=== PATIENT | female | born 1970 | race Caucasian/White ===

== ENCOUNTER → 2016-12-09 | Outpatient (CLI) | payer BC ==
--- NOTE | 2016-12-09 16:07 | P.HPBAR ---
Bariatric H&P - History & Physicial H&P Date: 12/09/16 History & Physicial: Visit/CC: Patient initial contact: Initial weight: Initial weight in pounds: Height: Initial BMI: Last weight: Current weight: 273 pounds Current weight in pounds: Current BMI: [place] body weight (based on NIH guidelines): Excess body weight loss: The patient is a 46 year-old F who presents for Bariatric Assessment. Patient presents today for lab band follow up. She's not been seen in several years. She states her weight has slightly increased. She has not had an adjustment or fill of her LAP-BAND for several years. She's had problems with chronic dysphagia. Patient was recently diagnosed with cholelithiasis. Surgical - Exam - General well developed, no distress - Eyes PERRL - ENT normal pinna - Neck no masses - Respiratory normal expansion - Cardiovascular Rhythm: regular - Abdomen Abdomen: soft, non tender Bariatric Assessment & Plan Plan: The patient was scheduled for an esophagram. She is unsure if she wishes to remove her band at this time. I did discuss her the possibility of conversion sleeve gastrectomy. Patient will follow-up in one month. Bariatric Checklist Checklist: Plan: Checklist: EGD: 1. Hiatal hernia: 2. H. Pylori: HgbA1c: Vitamin D: Smoking: Primary care physician referral: Psychiatry clearance: Cardiology clearance: Sleep study: Diet journal: VTE risk score: VTE risk level: Rehab needs at discharge:
[2016-12-09 16:09] VITALS: BP 158/74; PULSE 79; RESP 16; TEMP 99.2; BMI 41.5
== END | disposition home or self-care (01) ==
LOC: BARWHC3 14:44
PROVIDERS: ATTEND Surgery
DX: Z48.815 Encounter for surgical aftercare following surgery on the digestive system (principal); Z98.84 Bariatric surgery status
CPT/HCPCS: 99201

== ENCOUNTER → 2016-12-11 | Outpatient (CLI) | payer BC ==
--- NOTE | 2016-12-11 08:54 | FL ---
EXAMINATION TYPE: FL barium swallow DATE OF EXAM: 12/11/2016 LAP BANDING LIMITED ESOPHAGRAM: CLINICAL HISTORY: R13.10 dysphagia, K21.9 GERD TECHNIQUE: Limited esophagram is performed utilizing 2-3 oz of barium. 6 images obtained. COMPARISON: None. 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 The patient then drank oral contrast. There is good flow of c ontrast along the course of the esophagus. There is good flow of contrast along the course of the la p band, there is no evidence of contrast extravasation to suggest leak. There is no significant lillian leticia prolapse appreciated. IMPRESSION: No evidence of prolapse or significant obstruction.
== END | disposition home or self-care (01) ==
LOC: RADFLMAIN 08:02
PROVIDERS: ATTEND Surgery
DX: R13.10 Dysphagia, unspecified (principal)
CPT/HCPCS: 74220

== ENCOUNTER → 2019-11-22 | Outpatient (CLI) | payer OTHER ==
[2019-11-22 13:29] VITALS: BP 169/68; PULSE 76; TEMP 98; BMI 41.0
--- NOTE | 2019-11-22 14:36 | P.HPBAR ---
Bariatric H&P - History & Physicial H&P Date: 11/22/19 History & Physicial: Visit/CC: lap band follow up Patient initial contact: Initial weight: 158.757 kg Initial weight in pounds: 350.00 Height: 5 ft 8 in Initial BMI: 53.1 Last weight: Current weight: 122.47 kg Current weight in pounds: 270.00 Current BMI: 41.0 [place] body weight (based on NIH guidelines): 63.503 kg Excess body weight loss: 38.0% The patient is a 49 year-old F who presents for Bariatric Assessment. Patient presents today for lab band follow. She's had complaints of epigastric and some mild chest pain. She's had multiple workups name jonathan. Apparent she has a MRI which shows gallstones. The patient also request have her band removed. Past Medical History History of Any Multi-Drug Resistant Organisms: None Reported Smoking Status: Never smoker Surgical - Exam Vital Signs Temp Pulse BP 98 F 76 169/68 11/22/19 13:24 11/22/19 13:24 11/22/19 13:24 - General well developed, well nourished, no distress - Eyes PERRL - ENT normal pinna - Neck no masses - Respiratory normal expansion - Cardiovascular Rhythm: regular - Abdomen Abdomen: soft, non tender Bariatric Assessment & Plan Plan: Epigastric abdominal pain most likely due to gallstones. Patient will be scheduled for ultrasound of her gallbladder. I did discuss removal LAP-BAND with patient. She has had dysphagia symptoms and in the past. We will attempt to authorize her ultrasound for her gallbladder today. Bariatric Checklist Checklist: Plan: Checklist: EGD: 1. Hiatal hernia: 2. H. Pylori: HgbA1c: Vitamin D: Smoking: Unknown if ever smoked Primary care physician referral: Psychiatry clearance: Cardiology clearance: Sleep study: Diet journal: VTE risk score: VTE risk level: Rehab needs at discharge:
== END | disposition home or self-care (01) ==
LOC: BARWHC3 12:59
PROVIDERS: ATTEND Surgery
DX: Z46.51 Encounter for fitting and adjustment of gastric lap band (principal); R10.13 Epigastric pain; R07.9 Chest pain, unspecified
CPT/HCPCS: 99211

== ENCOUNTER → 2019-11-26 | Outpatient (CLI) | payer OTHER ==
--- NOTE | 2019-11-26 07:28 | US ---
EXAMINATION TYPE: US gallbladder DATE OF EXAM: 11/26/2019 COMPARISON: NONE CLINICAL HISTORY: K80.20 Hx of cholylisthesis. EXAM MEASUREMENTS: Liver Length: 16.4 cm Gallbladder Wall: 0.2 cm CBD: 0.5 cm Right Kidney: 10.3 x 4.7 x 5.5 cm Patient of large body habitus Pancreas: Obscured by bowel gas Liver: Increased attenuation Gallbladder: ALFREDO sign, cholelithiasis, wall wnl Evidence for sonographic Rosenbaum's sign: No CBD: wnl Right Kidney: wnl IMPRESSION: 1. Cholelithiasis. 2. Fatty liver.
== END | disposition home or self-care (01) ==
LOC: RADUSWWP 06:52
PROVIDERS: ATTEND Surgery
DX: K76.0 Fatty (change of) liver, not elsewhere classified (principal); K80.20 Calculus of gallbladder without cholecystitis without obstruction
CPT/HCPCS: 76705

== ENCOUNTER → 2019-11-26 | Outpatient (CLI) | payer OTHER ==
[2019-11-26 08:46] LABS: Basophils # (A) 0.1 k/uL (0-0.2); Basophils % (A) 1 %; Eosinophils # (A) 0.1 k/uL (0-0.7); Eosinophils % (A) 1 %; HGB 12.9 gm/dL (11.4-16.0); Lymphocytes # (A) 2.2 k/uL (1.0-4.8); Lymphocytes % (A) 30 %; MCH 27.6 pg (25.0-35.0); MCHC 34.1 g/dL (31.0-37.0); MCV 80.9 fL (80.0-100.0); Mean Platelet Volume 6.4; Monocytes # (A) 0.4 k/uL (0-1.0); Monocytes % (A) 5 %; Neutrophils # (A) 4.6 k/uL (1.3-7.7); Neutrophils % (A) 62 %; Platelet Count 227 k/uL (150-450); RDW 13.8 % (11.5-15.5); WBC 7.4 k/uL (3.8-10.6)
[2019-11-26 08:54] LABS: Albumin 4.2 g/dL (3.5-5.0); Calcium 8.8 mg/dL (8.4-10.2); Total Bilirubin 0.4 mg/dL (0.2-1.3); Total Protein 7.2 g/dL (6.3-8.2)
== END | disposition home or self-care (01) ==
LOC: LABPAT 07:29
PROVIDERS: ATTEND Surgery
DX: Z01.818 Encounter for other preprocedural examination (principal)
CPT/HCPCS: 36415; 80053; 85025; 93005

== ENCOUNTER 2019-12-14 07:22 | Day surgery (SDC) | payer OTHER ==
[2019-12-09 15:25] VITALS: BMI 39.5
[~2019-12-14 07:22] MED LIST: ACETAMINOPHEN TAB 500 MG TAB PO ONE; DEXAMETHASONE SOD PHOSPHATE 10 MG/ML 1 ML VIAL IV ONE; HEPARIN SODIUM,PORCINE 5,000 UNIT/ML 1 ML VIAL SQ ONE; LACTATED RINGERS 1,000 ML IV SCH; MIDAZOLAM 2 MG/2 ML VIAL IV PRN; ONDANSETRON 4 MG/2 ML VIAL IVP ONE; SCOPOLAMINE 1.5MG/72HR PATCH TRANSDERM ONE
[2019-12-14] MEDS ORDERED: LIDOCAINE 1% (10MG/ML) FOR IV START INTRADERMA ONE (08:00)
--- NOTE | 2019-12-14 08:40 | P.GSHP ---
History of Present Illness H&P Date: 12/14/19 Chief Complaint: Dysphagia, right upper quadrant pain. This 40 female history of LAP-BAND surgery. Patient safe removal of LAP-BAND dysphagia. She is also has evidence of cholecystitis and cholelithiasis. Patient will undergo laparoscopic cholecystectomy concurrently with removal of LAP-BAND. Past Medical History Past Medical History: Asthma, Chest Pain / Angina, GERD/Reflux, Hypertension, Thyroid Disorder Additional Past Medical History / Comment(s): environmental allergies, buldging disc., gall bladder pain. History of Any Multi-Drug Resistant Organisms: None Reported Past Surgical History: Bariatric Surgery, Tonsillectomy Additional Past Surgical History / Comment(s): ovarian cyst, lap band (2002- Dr. Hill) Past Anesthesia/Blood Transfusion Reactions: Motion Sickness, Postoperative Nausea & Vomiting (PONV) Past Psychological History: No Psychological Hx Reported Smoking Status: Never smoker Past Alcohol Use History: Occasional Past Drug Use History: None Reported - Past Family History Mother Family Medical History: No Reported History Medications and Allergies Home Medications Medication Instructions Recorded Confirmed Type Fluticasone/Salmeterol [Advair 1 puff INHALATION DAILY 11/23/19 12/09/19 History 250-50 Diskus] Losartan [Cozaar] 25 mg PO DAILY 11/23/19 12/09/19 History Montelukast [Singulair] 10 mg PO DAILY 11/23/19 12/09/19 History Omeprazole 20 mg PO DAILY 11/23/19 12/09/19 History Thyroid,Pork [[place] Thyroid] 90 mg PO MOWEFR 11/23/19 12/09/19 History Thyroid,Pork [[place] Thyroid] 120 mg PO SUTUTHSA 11/23/19 12/09/19 History amLODIPine [Norvasc] 5 mg PO DAILY 11/23/19 12/09/19 History Acetaminophen Tab [Tylenol] 650 mg PO DIRECTED PRN 12/09/19 12/09/19 History Biotin 10,000 mcg PO DAILY 12/09/19 12/09/19 History Cholecalciferol [Vitamin D3 (25 2,000 unit PO DAILY 12/09/19 12/09/19 History Mcg = 1000 Iu)] Allergies Allergy/AdvReac Type Severity Reaction Status Date / Time surgical glue Allergy Unknown red and Uncoded 12/14/19 07:46 itching Surgical - Exam Vital Signs Temp Pulse Resp BP Pulse Ox 97.1 F L 81 16 160/77 96 12/14/19 08:07 12/14/19 08:07 12/14/19 08:07 12/14/19 08:07 12/14/19 08:07 - General well developed, well nourished, no distress - Eyes PERRL - ENT normal pinna - Neck no masses - Respiratory normal expansion - Cardiovascular Rhythm: regular - Abdomen Abdomen: soft, non tender Assessment and Plan Assessment: Chronic dysphagia. We'll form of LAP-BAND. Cholelithiasis. We'll perform laparoscopic cholecystectomy
[2019-12-14] MEDS ORDERED: MIDAZOLAM 2 MG/2 ML VIAL ONE (09:05)
[2019-12-14] MEDS ORDERED: fentaNYL (PF) 50 MCG/ML 2 ML AMP ONE (09:05)
[2019-12-14] MEDS ORDERED: GLYCOPYRROLATE 0.2 MG/ML 2 ML VIAL ONE (09:05)
[2019-12-14] MEDS ORDERED: PROPOFOL 10 MG/ML 20 ML VIAL IV ONE (09:05)
[2019-12-14] MEDS ORDERED: SUCCINYLCHOLINE CHLORIDE 100 MG/5 ML SYR IV ONE (09:05)
[2019-12-14] MEDS ORDERED: KETOROLAC 15 MG/ML 1 ML VIAL ONE (09:05)
[2019-12-14] MEDS ORDERED: ROCURONIUM BROMIDE 10 MG/ML 5 ML VIAL IV ONE (09:05)
[2019-12-14] MEDS ORDERED: NEOSTIGMINE 1 MG/ML 10 ML VIAL ONE (09:05)
[2019-12-14] MEDS ORDERED: BUPIVACAINE (PF) 0.5% 30 ML VIAL SQ ONE (09:37)
[2019-12-14] MEDS ORDERED: LACTATED RINGERS 1,000 ML IV ONE (10:02)
--- NOTE | 2019-12-14 10:23 | P.OP ---
Date of Procedure: 12/14/19 Preoperative Diagnosis: Dysphagia Cholelithiasis Postoperative Diagnosis: Dysphagia Cholelithiasis Procedure(s) Performed: Laparoscopic repair of LAP-BAND system Laparoscopic cholecystectomy Anesthesia: KAY Surgeon: Jose Hill Estimated Blood Loss (ml): 20 Pathology: other (Gallbladder) Condition: stable Disposition: PACU Description of Procedure: The patient's placed the operative table in the supine position. She received general anesthesia. She was then placed in dorsal lithotomy position. Her abdomen was prepped and draped usual sterile fashion. The skin was incised at the LAP-BAND port then using blunt and sharp dissection with cautery the LAP- BAND port was dissected free. Next using a 5 ohmmeter operative trocar the. Cavity was entered at the LAP-BAND port site. The abdomen was insufflated. Next a 15 mm trochars placed in the left epigastric area and then a fibrillar trocar is placed in the suprapubic umbilical position and the left lateral position. The LAP-BAND device was seen after liver was retracted and then the LAP-BAND device was dissected free by dividing adhesions Mily device. LAP- BAND was then cut next the buckle Mily device withdrawn from around stomach. The LAP-BAND device was withdrawn through the 15 mm trocar site. Next a fibrillar trocar is placed in the right lateral position and the right subcostal position. The gallbladder was then grasped the fundus and infundibulum. Lateral and cephalad traction was applied to the gallbladder. The cystic duct was dissected. A 6 medical view of safety was achieved. And then the cystic duct was then ligated with the 2-0 Ethibond suture in the timeout device. The cystic duct was then divided using the Harmonic scissors. The gallbladder was then removed from the liver bed using the Harmonic scissors the cystic artery was divided using Harmonic scissors. The gallbladder was extracted through the 15 Simon trocar site. The gallbladder is packed. Large gallstones. The liver bed was irrigated there is no bleeding seen. The trochars withdrawn. The skin was closed interrupted 3-0 Monocryl suture. Dermabond was applied. Patient top she will was sent to recovery room in stable condition.
[2019-12-14] MEDS: HYDROmorphone 0.5 MG/0.5 ML SYRINGE IVP PRN ×4 (10:32→11:24)
[2019-12-14 10:43] VITALS: TEMP 97.8
[2019-12-14 13:33] VITALS: BP 141/85; PULSE 71; RESP 18
== END 2019-12-14 13:21 | disposition home or self-care (01) ==
LOC: OR 07:22
PROVIDERS: ATTEND Surgery
DX: K80.10 Calculus of gallbladder with chronic cholecystitis without obstruction (principal); Z45.89 Encounter for adjustment and management of other implanted devices; R13.10 Dysphagia, unspecified; I10 Essential (primary) hypertension; J45.909 Unspecified asthma, uncomplicated; K21.9 Gastro-esophageal reflux disease without esophagitis; E07.9 Disorder of thyroid, unspecified; Z98.890 Other specified postprocedural states; Z79.890 Hormone replacement therapy; Z79.51 Long term (current) use of inhaled steroids; Z79.899 Other long term (current) drug therapy; Z91.048 Other nonmedicinal substance allergy status
CPT/HCPCS: 81025; 88304; 47562; 43774; J2250; J1100; J2710; J0690; J2405; J3010; J1885; J0330; J2704; J1170

== ENCOUNTER 2020-01-27 11:24 | Day surgery (SDC) | payer OTHER ==
[2020-01-25 15:09] VITALS: BMI 39.5
[~2020-01-27 11:24] MED LIST changes: -ACETAMINOPHEN TAB 500 MG TAB PO ONE; -DEXAMETHASONE SOD PHOSPHATE 10 MG/ML 1 ML VIAL IV ONE; -HEPARIN SODIUM,PORCINE 5,000 UNIT/ML 1 ML VIAL SQ ONE; -MIDAZOLAM 2 MG/2 ML VIAL IV PRN; -ONDANSETRON 4 MG/2 ML VIAL IVP ONE; -SCOPOLAMINE 1.5MG/72HR PATCH TRANSDERM ONE
[2020-01-27] MEDS ORDERED: LIDOCAINE 1% (10MG/ML) FOR IV START INTRADERMA ONE (12:04)
--- NOTE | 2020-01-27 12:04 | P.GSHP ---
History of Present Illness H&P Date: 01/27/20 Chief Complaint: Dysphagia This 50-year-old female with history of dysphagia. Patient notes today for EGD. She describes symptoms of esophageal spasm Past Medical History Past Medical History: Asthma, Chest Pain / Angina, GERD/Reflux, Hypertension, Thyroid Disorder Additional Past Medical History / Comment(s): environmental allergies, buldging disc., History of Any Multi-Drug Resistant Organisms: None Reported Past Surgical History: Bariatric Surgery, Cholecystectomy, Tonsillectomy Additional Past Surgical History / Comment(s): ovarian cyst, lap band (2002- Dr. Hill) removal of lap band 12/18, lasik surgery Past Anesthesia/Blood Transfusion Reactions: No Reported Reaction, Motion Sickness, Postoperative Nausea & Vomiting (PONV) Smoking Status: Never smoker - Past Family History Mother Family Medical History: No Reported History Medications and Allergies Home Medications Medication Instructions Recorded Confirmed Type Fluticasone/Salmeterol [Advair 1 puff INHALATION DAILY 11/23/19 01/27/20 History 250-50 Diskus] Losartan [Cozaar] 25 mg PO DAILY 11/23/19 01/27/20 History Montelukast [Singulair] 5 mg PO DAILY 11/23/19 01/27/20 History Omeprazole 20 mg PO DAILY 11/23/19 01/27/20 History Thyroid,Pork [[place] Thyroid] 90 mg PO MOWEFR 11/23/19 01/27/20 History Thyroid,Pork [[place] Thyroid] 120 mg PO SUTUTHSA 11/23/19 01/27/20 History amLODIPine [Norvasc] 5 mg PO DAILY 11/23/19 01/27/20 History Acetaminophen Tab [Tylenol] 650 mg PO DIRECTED PRN 12/09/19 01/27/20 History Biotin 10,000 mcg PO DAILY 12/09/19 01/27/20 History Cholecalciferol [Vitamin D3 (25 2,000 unit PO DAILY 12/09/19 01/27/20 History Mcg = 1000 Iu)] Allergies Allergy/AdvReac Type Severity Reaction Status Date / Time surgical glue Allergy Unknown red and Uncoded 01/27/20 11:59 itching Surgical - Exam - General well developed, well nourished, no distress - Eyes PERRL - ENT normal pinna - Neck no masses - Respiratory normal expansion - Cardiovascular Rhythm: regular - Abdomen Abdomen: soft, non tender Assessment and Plan Assessment: History of dysphagia. We'll perform EGD.
[2020-01-27] MEDS ORDERED: PROPOFOL 10 MG/ML 20 ML VIAL IV ONE (12:10)
[2020-01-27] MEDS ORDERED: LIDOCAINE 1% INJ 10MG/ML (20 ML MDV) ONE (12:10)
[2020-01-27 12:12] VITALS: RESP 16; TEMP 97.8
--- NOTE | 2020-01-27 12:21 | P.OP ---
Date of Procedure: 01/27/20 Preoperative Diagnosis: Dysphagia Postoperative Diagnosis: Antral gastritis Procedure(s) Performed: EGD Anesthesia: MAC Surgeon: Jose Hill Pathology: none sent (Antrum) Condition: stable Disposition: PACU Description of Procedure: The patient's placed on the endoscopy table in the lateral position. She received IV sedation. The gastro-/oropharynx and passed in the esophagus into the stomach. Scope was then placed through the pylorus. The first and second portion of the duodenum appeared normal. Scope was then brought back the antrum this is mildly inflamed. A biopsies performed. Scope was then retroflexed and the remainder stomach appeared normal. Air was no evidence of a hiatal hernia. The GE junction was at 47 is. The distal esophagus appeared normal. The proximal esophagus appeared normal. Scope was withdrawn for patient.
[2020-01-27 13:24] VITALS: BP 132/76; PULSE 70
== END 2020-01-27 12:50 | disposition home or self-care (01) ==
LOC: ORWHC2ENDO 11:24
PROVIDERS: ATTEND Surgery
DX: K29.50 Unspecified chronic gastritis without bleeding (principal); K21.9 Gastro-esophageal reflux disease without esophagitis; J45.909 Unspecified asthma, uncomplicated; I10 Essential (primary) hypertension; I20.9 Angina pectoris, unspecified; E07.9 Disorder of thyroid, unspecified; E66.01 Morbid (severe) obesity due to excess calories; M51.9 Unspecified thoracic, thoracolumbar and lumbosacral intervertebral disc disorder; Z91.09 Other allergy status, other than to drugs and biological substances; Z98.84 Bariatric surgery status; Z90.49 Acquired absence of other specified parts of digestive tract; Z90.89 Acquired absence of other organs; Z87.42 Personal history of other diseases of the female genital tract; Z98.890 Other specified postprocedural states; Z87.898 Personal history of other specified conditions; Z91.89 Other specified personal risk factors, not elsewhere classified; Z79.51 Long term (current) use of inhaled steroids; Z79.899 Other long term (current) drug therapy; Z79.890 Hormone replacement therapy; Z68.39 Body mass index [BMI] 39.0-39.9, adult
CPT/HCPCS: 81025; 88305; 43239; J2001; J2704